=== PATIENT | female | born 1960 | race Caucasian/White ===

== ENCOUNTER → 2022-04-04 | Outpatient (CLI) | payer BC ==
[2022-04-04 18:25] LABS: Basophils # (A) 0.04 X 10*3/uL (0.00-0.10); Basophils % (A) 0.8 %; Eosinophils # (A) 0.34 X 10*3/uL (0.04-0.35); Eosinophils % (A) 6.7 %; HCT 44.4 % (37.2-46.3); HGB 14.6 g/dL (12.0-15.0); Immature Grans, Automated 0.4 %; Lymphocytes # (A) 1.32 X 10*3/uL (0.90-5.00); Lymphocytes % (A) 26.2 %; MCH 29.4 pg (27.0-32.0); MCHC 32.9 g/dL (32.0-37.0); MCV 89.3 fL (80.0-97.0); Mean Platelet Volume 9.7 fL (9.5-12.2); Monocytes # (A) 0.36 X 10*3/uL (0.20-1.00); Monocytes % (A) 7.1 %; NRBC Per 100 WBC 0 /100 WBCS (0.0-0.0); Neutrophils # (A) 2.96 X 10*3/uL (1.80-7.70); Neutrophils % (A) 58.8 %; Platelet Count 254 X 10*3/uL (140-440); RBC 4.97 X 10*6/uL (4.10-5.20); RDW 13.4 % (11.5-14.5); WBC 5.04 X 10*3/uL (4.50-10.00)
[2022-04-04 21:35] LABS: Cryptosporidium Antigen Negative (Negative)
[2022-04-04 21:51] LABS: Gliadin AB IgA, Deaminated NEGATIVE (NEGATIVE); Gliadin AB IgA, Unit 3.2 U/mL; Gliadin AB IgG, Deaminated NEGATIVE (NEGATIVE); Gliadin AB IgG, Unit 0.7 U/mL
== END | disposition home or self-care (01) ==
LOC: LABWHC1 12:02
PROVIDERS: ATTEND Internal Medicine Gastroenterology
DX: R19.7 Diarrhea, unspecified (principal); R12 Heartburn
CPT/HCPCS: 36415; 83516; 83630; 85025; 87045; 87046; 87328; 87329; 87338

== ENCOUNTER 2022-05-28 09:59 | Day surgery (SDC) | payer BC ==
[2022-05-23 11:27] VITALS: BMI 31.8
[~2022-05-28 09:59] MED LIST: LACTATED RINGERS 1,000 ML IV SCH; LIDOCAINE 1% (10MG/ML) FOR IV START INTRADERMA PRN
[2022-05-28 10:25] VITALS: TEMP 97
[2022-05-28] MEDS ORDERED: LACTATED RINGERS 1,000 ML IV ONE (10:25)
[2022-05-28] MEDS ORDERED: ONDANSETRON 4 MG/2 ML VIAL ONE (10:37)
[2022-05-28] MEDS ORDERED: PROPOFOL 10 MG/ML 20 ML VIAL IV ONE (11:05)
[2022-05-28] MEDS ORDERED: LIDOCAINE 2% INJ 20 MG/ML (2 ML VIAL) ONE (11:05)
--- NOTE | 2022-05-28 11:23 | P.PCN ---
Date of Procedure: 05/28/22 Procedure(s) Performed: BRIEF HISTORY: Patient is a 62-year-old, pleasant, white female scheduled for an upper endoscopy as part of evaluation of heartburn and epigastric pain for the last several months duration. She is been complaint of epigastric pain almost daily basis associated with loose watery bowel movements. She had a colonoscopy in September 2020 that was unremarkable and small serrated polyp. She was treated with Prilosec in the past with no help. Recently was started on Prevacid 20 mg daily PROCEDURE PERFORMED: Esophagogastroduodenoscopy with biopsy . PREOPERATIVE DIAGNOSIS: Chronic epigastric pain/heartburn and intermittent diarrhea of several months duration V sedation per anesthesia. PROCEDURE: After informed consent was obtained, the patient was brought into the endoscopy unit. IV sedation was administered by Anesthesia under continuous monitoring. Initially the Olympus GIF-140 video endoscope was inserted into the mouth. Esophagus intubated without any difficulty. It was gradually advanced into the stomach and duodenum and carefully examined. The bulb and the second part of the duodenum appeared normal. biopsies were done from the duodenum to rule out celiac disease. The scope at this time was withdrawn to the stomach, adequately insufflated with air, and upon careful examination, mucosa of the antrum, had mild gastritis and biopsies were done from this area. Multiple small gastric polyps noted in the body the stomach which was biopsied. Rest of the body, cardia and the fundus appeared normal. The scope was then withdrawn into the esophagus. The GE junction was located at 39 cm from the incisors. small sliding-type well hernia noted. There was a 5-6 mm in the Soliman's appearing mucosa just proximal to the GE junction which was biopsied. The esophagus appeared normal. There were no erosions or ulcerations seen and the patient tolerated the procedure well. IMPRESSION: 1. Small hiatal hernia and short segment Soliman's esophagus status post biopsy . 2 Mild antral gastritis. 3. Multiple small gastric polyps RECOMMENDATIONS: The findings of this examination were discussed with the patient as well as a family. She was advised to follow with the biopsy results. Continue with Prevacid 30 mg every day and uses Tums as needed. Follow up in the office in 3-4 weeks.
[2022-05-28 11:30] VITALS: RESP 16
[2022-05-28 11:42] VITALS: BP 133/91; PULSE 72
== END 2022-05-28 12:03 | disposition home or self-care (01) ==
LOC: ORWHC2ENDO 09:59
PROVIDERS: ATTEND Internal Medicine Gastroenterology
DX: K31.7 Polyp of stomach and duodenum (principal); K29.50 Unspecified chronic gastritis without bleeding; K21.00 Gastro-esophageal reflux disease with esophagitis, without bleeding; K22.70 Barrett's esophagus without dysplasia; K44.9 Diaphragmatic hernia without obstruction or gangrene; E03.9 Hypothyroidism, unspecified; Z79.890 Hormone replacement therapy; Z79.899 Other long term (current) drug therapy; Z98.890 Other specified postprocedural states
CPT/HCPCS: 43239; J2405; J2704; J2001; 88305

== ENCOUNTER → 2023-10-08 | Outpatient (CLI) | payer BC | END | disposition home or self-care (01) | LOC: LABWHC1 10:27 | PROVIDERS: ATTEND Internal Medicine Critical Care Medicine | DX: J45.40 Moderate persistent asthma, uncomplicated (principal) | CPT/HCPCS: 36415; 82785; 85008; 86003 ==

== ENCOUNTER → 2024-08-24 | Outpatient (CLI) | payer BC | END | disposition home or self-care (01) | LOC: LABWHC1 13:48 | PROVIDERS: ATTEND Internal Medicine Critical Care Medicine | DX: J45.50 Severe persistent asthma, uncomplicated (principal) | CPT/HCPCS: 36415; 85008 ==

== ENCOUNTER 2024-09-10 05:08 | Emergency (ER) | payer BC ==
[2024-09-10 05:19] VITALS: RESP 18
[2024-09-10 06:37] LABS: Basophils # (A) 0.05 10*3/uL (0.00-0.10); Basophils % (A) 0.8 %; Eosinophils # (A) 0.26 10*3/uL (0.04-0.35); Eosinophils % (A) 4.2 %; HCT 42.4 % (37.2-46.3); HGB 14.8 g/dL (12.0-15.0); Lymphocytes # (A) 1.93 10*3/uL (0.90-5.00); Lymphocytes % (A) 31.2 %; MCH 29.6 pg (27.0-32.0); MCHC 34.9 g/dL (32.0-37.0); MCV 84.8 fL (80.0-97.0); Mean Platelet Volume 9.4 fL (9.5-12.2); Monocytes # (A) 0.38 10*3/uL (0.20-1.00); Monocytes % (A) 6.1 %; Neutrophils # (A) 3.54 10*3/uL (1.80-7.70); Neutrophils % (A) 57.4 %; Platelet Count 260 10*3/uL (140-440); RDW 13.5 % (11.5-14.5); WBC 6.18 10*3/uL (4.50-10.00)
[2024-09-10 06:44] LABS: ALT 18 U/L (4-34); AST 17 U/L (14-36); African American GFR (CKD) >90 (>60 ml/min/1.73 sqM); Albumin 3.8 g/dL (3.5-5.0); Alkaline Phosphatase 91 U/L (38-126); Anion Gap 9 mmol/L; Blood Urea Nitrogen 16 mg/dL (7-17); Calcium 9.4 mg/dL (8.4-10.2); Carbon Dioxide 21 mmol/L (22-30); Chloride 108 mmol/L (98-107); Glucose 109 mg/dL (74-99); Non-African American GFR(CKD) 85 (>60 ml/min/1.73 sqM); Potassium 3.8 mmol/L (3.5-5.1); Sodium 138 mmol/L (137-145); Total Bilirubin 0.6 mg/dL (0.2-1.3); Total Protein 6.3 g/dL (6.3-8.2)
--- NOTE | 2024-09-10 06:49 | XR ---
EXAMINATION TYPE: XR chest 2V DATE OF EXAM: 09/10/2024 CLINICAL INDICATION: Female, 64 years old with history of difficulty breathing, TECHNIQUE: Frontal and lateral views of the chest are obtained. COMPARISON: Outside chest x-ray October 08, 2023. Prior CT July 07, 2023 FINDINGS: Exaggerated thoracic kyphosis is redemonstrated. There is azygos lobe/fissure redemonstrate d which is normal variant. Mild linear scarring left midlung redemonstrated. Mild biapical pleural/pa renchymal scarring. There is no suspicious new focal air space opacity, pleural effusion, or pneumoth orax seen. The cardiac silhouette size is stable and upper limits of normal. IMPRESSION: Chronic changes without new suspicious acute pulmonary process. [facility], , 09/10/2024 6:47 AM
[2024-09-10 07:03] LABS: INR 0.9 (<1.2); Partial Thromboplastin Time 22.3 sec (22.0-30.0)
--- NOTE | 2024-09-10 07:27 | ED ---
SOB HPI - General Chief Complaint: Shortness of Breath Stated Complaint: SUSY Time Seen by Provider: 09/10/24 05:23 Source: EMS Mode of arrival: EMS Limitations: no limitations - History of Present Illness Initial Comments: This patient is a 64-year-old woman with history of previous "collapsed lung," who presents to have evaluation for sharp right-sided chest pain. The patient states she had been in bed trying to sleep when and she had onset of sharp right-sided chest pain mainly with inspiration. She states that there was a sensation as if something had popped in her chest. She did not have any trauma. She has not had fever or chills. No productive cough. No leg pain or swelling. No hemoptysis MD Complaint: shortness of breath, chest pain -: hour(s) Severity: moderate Quality: aching, sharp Consistency: constant Improves With: nothing Worsens With: movement, inspiration Known History Of: COPD, other Associated Symptoms: denies other symptoms Treatments Prior to Arrival: none - Related Data Home Medications Medication Instructions Recorded Confirmed Cholecalciferol [Vitamin D3 (25 25 mcg PO DAILY 05/23/22 07/06/23 Mcg = 1000 Iu)] Lansoprazole [Prevacid] 15 mg PO DAILY 05/23/22 07/06/23 Thyroid,Pork [Decker Thyroid] 120 mg PO DAILY 05/23/22 07/06/23 Albuterol Nebulized [Ventolin 2.5 mg INHALATION RT-TID PRN 07/06/23 07/06/23 Nebulized] L.acidoph,Paracasei, B.lactis 1 cap PO DAILY 07/06/23 07/06/23 [Probiotic] Previous Rx's Medication Instructions Recorded ALPRAZolam [Xanax] 0.25 mg PO Q8HR PRN 3 Days #9 tab 07/10/23 ALPRAZolam [Xanax] 0.5 mg PO TID PRN #9 tablet 07/10/23 ALPRAZolam [Xanax] 0.5 mg PO TID PRN #9 tablet 07/10/23 Budesonide-Formot 160-4.5 Mcg 2 puff INHALATION RT-BID #1 each 07/10/23 [Symbicort 160-4.5 Mcg Inhaler] predniSONE See Taper PO DIRECTED #30 tab 07/10/23 Ibuprofen [Motrin] 600 mg PO Q8HR PRN #20 tab 09/10/24 Allergies Allergy/AdvReac Type Severity Reaction Status Date / Time cigarette smoke Allergy Unknown Verified 09/10/24 05:19 mold Allergy Unknown Uncoded 09/10/24 05:19 Review of Systems ROS Statement: Those systems with pertinent positive or pertinent negative responses have been documented in the HPI. ROS Other: All systems not noted in ROS Statement are negative. Constitutional: Denies: fever, chills, weakness Respiratory: Reports: as per HPI, dyspnea. Denies: cough, wheezes, hemoptysis Cardiovascular: Reports: as per HPI, chest pain. Denies: palpitations, edema, syncope Gastrointestinal: Denies: abdominal pain, nausea, vomiting, diarrhea Genitourinary: Denies: dysuria, hematuria Musculoskeletal: Denies: back pain Skin: Denies: rash Neurological: Denies: headache, weakness Past Medical History Past Medical History: GI Bleed, Thyroid Disorder Additional Past Medical History / Comment(s): abdominal pain. hashimotos History of Any Multi-Drug Resistant Organisms: None Reported Past Surgical History: Section Additional Past Surgical History / Comment(s): abdominoplasty, ganglion cyst left wrist, bunionectomy right great toe, wisdom teeth extraction, colonscopy Past Anesthesia/Blood Transfusion Reactions: Postoperative Nausea & Vomiting (PONV) Past Psychological History: No Psychological Hx Reported Smoking Status: Never smoker Past Alcohol Use History: None Reported Past Drug Use History: None Reported - Past Family History Father Family Medical History: Cancer Additional Family Medical History / Comment(s): pancreatic Mother Family Medical History: CVA/TIA General Exam Limitations: no limitations General appearance: alert, in no apparent distress Head exam: Present: atraumatic, normocephalic Eye exam: Present: normal appearance. Absent: scleral icterus, conjunctival injection ENT exam: Present: normal oropharynx Neck exam: Present: normal inspection Respiratory exam: Present: wheezes. Absent: respiratory distress, rales, rhonchi, stridor, chest wall tenderness, accessory muscle use Cardiovascular Exam: Present: regular rate, normal rhythm, normal heart sounds. Absent: systolic murmur, diastolic murmur, rubs, gallop GI/Abdominal exam: Present: soft. Absent: distended, tenderness, guarding, rebound, rigid, mass Extremities exam: Present: normal inspection, normal capillary refill. Absent: pedal edema, calf tenderness Back exam: Present: normal inspection. Absent: paraspinal tenderness, vertebral tenderness Neurological exam: Present: alert Skin exam: Present: warm, dry, intact, normal color. Absent: rash Course Vital Signs 09/10/24 09/10/24 09/10/24 05:12 07:39 08:18 Temperature 97.6 F 98.7 F Pulse Rate 73 72 62 Respiratory 18 18 18 Rate Blood Pressure 146/87 122/75 127/72 O2 Sat by Pulse 98 96 97 Oximetry Medical Decision Making - Medical Decision Making The patient had chest x-ray that I interpreted as negative for acute infiltrate, pneumothorax, congestive heart failure Was pt. sent in by a medical professional or institution (, PA, MEDICAL CLAIMS ASSISTANT, urgent care, hospital, or care home...) When possible be specific @ -[No] Did you speak to anyone other than the patient for history (EMS, parent, family, police, friend...)? What history was obtained from this source @ -[No] Did you review nursing and triage notes (agree or disagree)? Why? @ -[I reviewed and agree with nursing and triage notes] Were old charts reviewed (outside hosp., previous admission, EMS record, old EKG, old radiological studies, urgent care reports/EKG's, care home records)? Report findings @ -[No old charts were reviewed] Differential Diagnosis (chest pain, altered mental status, abdominal pain women, abdominal pain men, vaginal bleeding, weakness, fever, dyspnea, syncope, headache, dizziness, GI bleed, back pain, seizure, CVA, palpatations, mental health, musculoskeletal)? @ -[Differential Chest Pain: Stable Angina, Unstable Angina, STEMI, NSTEMI Aortic Dissection, Pneumothorax, Musculoskeletal, Esophageal Spasm GERD, Cholecystitis, Pancreatitis, Zoster, this is not meant to be an all-inclusive list. EKG interpreted by me (3pts min.). @ -[I interpreted as above] X-rays interpreted by me (1pt min.). @ -[I interpreted as above CT interpreted by me (1pt min.). @ -[None done] U/S interpreted by me (1pt. min.). @ -[None done] What testing was considered but not performed or refused? (CT, X-rays, U/S, labs)? Why? @ -[None] What meds were considered but not given or refused? Why? @ -[None] Did you discuss the management of the patient with other professionals (professionals i.e. , PA, MEDICAL CLAIMS ASSISTANT, lab, RT, psych nurse, social insurance specialist, vest front presser, teacher, gifts officer, mental health case manager)? Give summary @ -[No] Was smoking cessation discussed for >3mins.? @ -[No] Was critical care preformed (if so, how long)? @ -[No] Were there social determinants of health that impacted care today? How? (Homelessness, low income, unemployed, alcoholism, drug addiction, transportation, low edu. Level, literacy, decrease access to med. care, care home, rehab)? @ -[No] Was there de-escalation of care discussed even if they declined (Discuss DNR or withdrawal of care, Hospice)? DNR status @ -[No] What co-morbidities impacted this encounter? (DM, HTN, Smoking, COPD, CAD, Cancer, CVA, ARF, Chemo, Hep., AIDS, mental health diagnosis, sleep apnea, morbid obesity)? @ -[Previous pneumothorax. Was patient admitted / discharged? Hospital course, mention meds given and route, prescriptions, significant lab abnormalities, going to OR and other pertinent info. @ -[Patient is a 64-year-old woman who describes history of previous pneumothorax. She had similar pain. The workup includes chest x-ray that was negative. The physical exam not suggestive of pneumothorax. History and physical consistent with pleuritic chest pain. Patient started on anti- inflammatory medication. Patient stable for outpatient treatment. Discussed with patient appropriate further care including follow-up and return parameters. Undiagnosed new problem with uncertain prognosis? @ -[No] Drug Therapy requiring intensive monitoring for toxicity (Heparin, Nitro, Insulin, Cardizem)? @ -[No] Were any procedures done? @ -[No] Diagnosis/symptom? @ -[Acute pleuritic chest pain Acute, or Chronic, or Acute on Chronic? @ -[Acute Uncomplicated (without systemic symptoms) or Complicated (systemic symptoms)? @ -[Uncomplicated Side effects of treatment? @ -[No] Exacerbation, Progression, or Severe Exacerbation? @ -[No] Poses a threat to life or bodily function? How? (Chest pain, [place], [place], pneumonia, PE, COPD, DKA, ARF, appy, cholecystitis, CVA, Diverticulitis, Homicidal, Suicidal, threat to staff... and all critical care pts) @ -[No] All treatments are based on ideal body weight as in ED triage - Lab Data Result diagrams: 09/10/24 06:12 09/10/24 06:12 Lab Results 09/10/24 09/10/24 09/10/24 Range/Units 06:12 06:12 06:12 WBC 6.18 (4.50-10.00) 10*3/uL RBC 5.00 (4.10-5.20) 10*6/uL Hgb 14.8 (12.0-15.0) g/dL Hct 42.4 (37.2-46.3) % MCV 84.8 (80.0-97.0) fL MCH 29.6 (27.0-32.0) pg MCHC 34.9 (32.0-37.0) g/dL Plt Count 260 (140-440) 10*3/uL MPV 9.4 L (9.5-12.2) fL Immature Gran % (Auto) 0.3 % Neutrophils % 57.4 % Lymphocytes % 31.2 % Monocytes % 6.1 % Eosinophils % 4.2 % Basophils % 0.8 % Immature Gran # 0.02 (0.00-0.04) 10*3/uL Neutrophils # 3.54 (1.80-7.70) 10*3/uL Lymphocytes # 1.93 (0.90-5.00) 10*3/uL Monocytes # 0.38 (0.20-1.00) 10*3/uL Eosinophils # 0.26 (0.04-0.35) 10*3/uL Basophils # 0.05 (0.00-0.10) 10*3/uL PT 10.0 (10.0-12.5) sec INR 0.9 (<1.2) APTT 22.3 (22.0-30.0) sec D-Dimer 0.53 (<0.60) mg/L FEU Sodium 138 (137-145) mmol/L Potassium 3.8 (3.5-5.1) mmol/L Chloride 108 H (98-107) mmol/L Carbon Dioxide 21 L (22-30) mmol/L Anion Gap 9 mmol/L BUN 16 (7-17) mg/dL Creatinine 0.75 (0.52-1.04) mg/dL Est GFR (CKD-EPI)AfAm >90 (>60 ml/min/1.73 sqM) Est GFR (CKD-EPI)NonAf 85 (>60 ml/min/1.73 sqM) Glucose 109 H (74-99) mg/dL Lactic Ac Sepsis Rflx Plasma Lactic Acid Lonnie (0.7-2.0) mmol/L Calcium 9.4 (8.4-10.2) mg/dL Total Bilirubin 0.6 (0.2-1.3) mg/dL AST 17 (14-36) U/L ALT 18 (4-34) U/L Alkaline Phosphatase 91 (38-126) U/L Troponin I (0.000-0.034) ng/mL Total Protein 6.3 (6.3-8.2) g/dL Albumin 3.8 (3.5-5.0) g/dL 09/10/24 09/10/24 09/10/24 Range/Units 06:12 06:12 07:01 WBC (4.50-10.00) 10*3/uL RBC (4.10-5.20) 10*6/uL Hgb (12.0-15.0) g/dL Hct (37.2-46.3) % MCV (80.0-97.0) fL MCH (27.0-32.0) pg MCHC (32.0-37.0) g/dL Plt Count (140-440) 10*3/uL MPV (9.5-12.2) fL Immature Gran % (Auto) % Neutrophils % % Lymphocytes % % Monocytes % % Eosinophils % % Basophils % % Immature Gran # (0.00-0.04) 10*3/uL Neutrophils # (1.80-7.70) 10*3/uL Lymphocytes # (0.90-5.00) 10*3/uL Monocytes # (0.20-1.00) 10*3/uL Eosinophils # (0.04-0.35) 10*3/uL Basophils # (0.00-0.10) 10*3/uL PT (10.0-12.5) sec INR (<1.2) APTT (22.0-30.0) sec D-Dimer (<0.60) mg/L FEU Sodium (137-145) mmol/L Potassium (3.5-5.1) mmol/L Chloride (98-107) mmol/L Carbon Dioxide (22-30) mmol/L Anion Gap mmol/L BUN (7-17) mg/dL Creatinine (0.52-1.04) mg/dL Est GFR (CKD-EPI)AfAm (>60 ml/min/1.73 sqM) Est GFR (CKD-EPI)NonAf (>60 ml/min/1.73 sqM) Glucose (74-99) mg/dL Lactic Ac Sepsis Rflx Y Plasma Lactic Acid Lonnie 2.4 H* (0.7-2.0) mmol/L Calcium (8.4-10.2) mg/dL Total Bilirubin (0.2-1.3) mg/dL AST (14-36) U/L ALT (4-34) U/L Alkaline Phosphatase (38-126) U/L Troponin I <0.012 (0.000-0.034) ng/mL Total Protein (6.3-8.2) g/dL Albumin (3.5-5.0) g/dL Disposition Clinical Impression: Pleuritic chest pain Disposition: HOME SELF-CARE Condition: Good Instructions (If sedation given, give patient instructions): Pleurisy (DC) Prescriptions: Ibuprofen [Motrin] 600 mg PO Q8HR PRN #20 tab PRN Reason: Pain Is patient prescribed a controlled substance at d/c from ED?: No Referrals: Brendan Fernandez MD [Primary Care Provider] - 1-2 days
[2024-09-10] MEDS: predniSONE 20 MG TAB PO STA (07:37)
[2024-09-10] MEDS: KETOROLAC 15 MG/ML 1 ML VIAL IVP STA (07:38)
[2024-09-10] MEDS: SODIUM CHLORIDE 0.9% 500 ML 500 ML IV STA (07:39)
[2024-09-10 08:20] VITALS: BP 127/72; PULSE 62; TEMP 98.7
== END 2024-09-10 08:32 | disposition home or self-care (01) ==
LOC: EC 05:08
DX: R07.81 Pleurodynia (principal); J93.9 Pneumothorax, unspecified; Z77.22 Contact with and (suspected) exposure to environmental tobacco smoke (acute) (chronic); Z77.120 Contact with and (suspected) exposure to mold (toxic)
CPT/HCPCS: 36415; 93005; 85379; 80053; 83605; 84484; 85025; 85610; 85730; 71046; 99285; 96374; J1885; J7512